=== PATIENT | female | born 1990 ===

== ENCOUNTER 2017-03-31 10:39 | Observation (INO) | payer MEDICAID ==
[2017-03-31 10:39] VITALS: BMI 28.3
[2017-03-31 10:46] VITALS: TEMP 98.2; O2SAT 100
--- NOTE | 2017-03-31 11:52 | ED PDOC ---
Arrival/HPI - General Chief Complaint: Abdominal Pain Time Seen by Provider: 03/31/17 11:50 Historian: Patient - History of Present Illness Narrative History of Present Illness (Text): 03/31/17 11:50 27 year old female who denies past medical history presents to the emergency department with vaginal bleeding since yesterday. She states she saw her PMD for bloodwork and when he pressed on her abdomen she began to bleed. She states she was told she needed an ultrasound. Patient adds that 7 months ago she "bled twice in one month" which she attributed to her period. Currently patient states she is not on control. Denies nausea, vomiting, diarrhea, constipation, or decreased appetite. Denies dysuria or vaginal discharge. Time/Duration: 24 hours Symptom Onset: Sudden Symptom Course: Unchanged Modifying Factors (Text): None Associated Symptoms (Text): None Past Medical History - Provider Review Nursing Documentation Reviewed: Yes - Tetanus Immunization Tetanus Immunization: Unknown - Psychiatric Hx Substance Use: No - Surgical History Hx Dilation and Curettage: Yes (October 2016) Family/Social History - Physician Review Nursing Documentation Reviewed: Yes Family/Social History: Unknown Family HX Smoking Status: Never Smoked Hx Alcohol Use: No Hx Substance Use: No Allergies/Home Meds Allergies/Adverse Reactions: Allergies No Known Allergies Allergy (Verified 03/31/17 10:42) Review of Systems - Physician Review All systems were reviewed & negative as marked: Yes - Review of Systems Gastrointestinal: absent: Constipation, Diarrhea, Nausea, Vomiting Genitourinary Female: Vaginal Bleeding. absent: Dysuria, Vaginal Discharge Skin: absent: Rash Physical Exam - Physical Exam Narrative Physical Exam (Text): Constitutional: No acute distress. Head: Normocephalic. Atraumatic. Eyes: PERRL. ENT: Moist mucous membranes. Neck: Supple. Cardiovascular: Regular rate. Chest: No tenderness. Respiratory: Clear to auscultation bilaterally. GI: Soft. Lower abdominal tenderness, worst on L & R suprapubic regions. Nondistended. Back: No CVA tenderness. Musculoskeletal: No tenderness or swelling of extremities. Skin: No rash. Neurologic: Alert, no focal deficit. Vital Signs Reviewed: Yes Vital Signs Temp Pulse Resp BP Pulse Ox 03/31/17 16:26 68 18 115/69 100 03/31/17 15:00 71 18 113/65 100 03/31/17 13:58 75 18 116/71 100 03/31/17 12:04 79 18 114/69 100 03/31/17 10:43 98.2 F 84 16 112/73 100 Temperature: Afebrile Blood Pressure: Normal Pulse: Regular Respiratory Rate: Normal Appearance: Positive for: Well-Appearing, Non-Toxic, Comfortable Pain Distress: None Mental Status: Positive for: Alert and Oriented X 3 Medical Decision Making ED Course and Treatment: Impression: 27 year old female who denies past medical history presents to the emergency department with vaginal bleeding since yesterday. Differential Diagnosis included but are not limited to: Pelvic pain r/o cyst vs ovarian torsion Plan: -- US transvaginal -- Labs -- Reassess and disposition Prior Visits: Notes and results from previous visits were reviewed. Patient last seen in the ED on 10/26/16 for abdominal pain and discharged home. Progress Notes: - RAD Interpretation Narrative RAD Interpretations (Text): Ultrasound Pelvic Voice Writing Reporter: Huy Quintana MD IMPRESSION: Unremarkable pelvic ultrasound Parimutuel Ticket Checker: Radiologist - Medication Orders Current Medication Orders: Discontinued Medications Ketorolac Tromethamine (Toradol) 30 mg IVP STAT STA Stop: 03/31/17 11:57 Last Admin: 03/31/17 12:13 Dose: 30 mg Morphine Sulfate (Morphine) 2 mg IVP STAT STA Stop: 03/31/17 14:54 Last Admin: 03/31/17 15:13 Dose: 2 mg ED OBSERVATION Discharge: Yes Date of observation admission: 03/31/17 Time of observation admission: 11:50 - Observation admission statement Patient is being placed in observation because:: pelvic pain - Goals of Observation Goals of observation are:: monitor patient's response to treatment in the ER. - Progress Note Progress Note: 03/31/17 11:50 On initial exam, patient with mild pain. 03/31/17 13:50 Patient resting in no acute distress. 03/31/17 14:55 Patient continues to have pain, crying in stretcher. Patient has right lower quadrant tenderness. Will send for CT. 03/31/17 14:55 Patient resting with no new complaints. PROCEDURE: CT Abdomen and Pelvis with contrast Voice Writing Reporter : Tremayne Wrae Report Date : 03/31/2017 17:09:47 IMPRESSION: No evidence of appendicitis. No evidence of acute pathology in the abdomen and pelvis. 2 centimeter cyst at the left adnexa. Slightly heterogeneous prominent size uterus. Patient states she feels much better now. Instructed to f/u with OBGYN. Prescribed Percocet for breakthrough pain. Informed patient of risk of addiction. RESPITE CARE PROVIDER checked. - Scribe Statement The provider has reviewed the documentation as recorded by the Dyan White Provider Scribe Attestation: All medical record entries made by the Scribjosesito were at my direction and personally dictated by me. I have reviewed the chart and agree that the record accurately reflects my personal performance of the history, physical exam, medical decision making, and the department course for this patient. I have also personally directed, reviewed, and agree with the discharge instructions and disposition. Disposition/Present on Arrival - Present on Arrival Any Indicators Present on Arrival: No History of DVT/PE: No History of Uncontrolled Diabetes: No Urinary Catheter: No History of Decub. Ulcer: No History Surgical Site Infection Following: None - Disposition Have Diagnosis and Disposition been Completed?: Yes Diagnosis: Ovarian cyst Disposition: HOME/ ROUTINE Disposition Time: 17:26 Patient Plan: Discharge Patient Problems: Current Active Problems Problem Status Onset Ovarian cyst Acute Condition: STABLE
[2017-03-31 12:22] LABS: ADD MANUAL DIFF? NO
[2017-03-31 12:26] LABS: BASO # 0.04 K/mm3 (0.0-2.0); BASO % 0.5 % (0.0-3.0); EOS # 0.1 (0.0-0.7); EOS % 1.2 % (1.5-5.0); GRAN # 5.05 (1.4-6.5); GRAN % 64.6 % (50.0-68.0); HEMATOCRIT 35.5 % (36.0-48.0); LYMPH # 1.9 (1.2-3.4); LYMPH % 24.6 % (22.0-35.0); MEAN CELL VOLUME 80.1 fL (80.0-105.0); MEAN CORPUSCULAR HEMOGLOBIN 25.3 pg (25.0-35.0); MEAN CORPUSCULAR HGB CONC 31.5 g/dl (31.0-37.0); MEAN PLATELET VOLUME 11.9 fl (7.0-11.0); MONO # 0.7 (0.1-0.6); MONO % 9.1 % (1.0-6.0); PLATELET COUNT 257 10^3/uL (120.0-450.0); RED CELL DISTRIBUTION WIDTH 15.2 % (11.5-14.5); WHITE BLOOD COUNT 7.8 10^3/ul (4.5-11.0)
[2017-03-31 12:27] LABS: PH,URINE 5.5 (4.7-8.0); URINE APPEARANCE CLEAR (CLEAR); URINE BILIRUBIN NEGATIVE (NEGATIVE); URINE BLOOD LARGE (NEGATIVE); URINE COLOR YELLOW (YELLOW); URINE GLUCOSE (UA) NEGATIVE (NEGATIVE); URINE KETONE TRACE mg/dL (NEGATIVE); URINE LEUKOCYTE ESTERASE NEGATIVE Leu/uL (NEGATIVE); URINE PROTEIN NEGATIVE mg/dL (<30 mg/dL); URINE UROBILINOGEN 0.2 E.U./dL (<1 E.U./dL)
[2017-03-31 12:38] LABS: ALB/GLOB RATIO 1.4 (1.1-1.8); ALKALINE PHOSPHATASE 40 U/L (38-133); ALT/SGPT 26 U/L (7-56); AST/SGOT 19 U/L (15-39); BILIRUBIN,TOTAL 0.6 mg/dL (0.2-1.3); BLOOD UREA NITROGEN 11 mg/dL (7-21); CARBON DIOXIDE 26 mmol/L (21-33); CHLORIDE 104 mmol/L (98-107); GFR AFRICAN-AMERICAN > 60; GLUCOSE,RANDOM 76 mg/dL (70-110); POTASSIUM 4.1 mmol/L (3.6-5.0); SODIUM 139 mmol/L (132-148); TOTAL PROTEIN 7.5 g/dL (5.8-8.3)
[2017-03-31 12:39] LABS: URINE WBC 0 - 2 /hpf (0-6)
[2017-03-31 12:40] LABS: URINE BACTERIA SMALL (NEG)
--- NOTE | 2017-03-31 14:50 | US ---
PROCEDURE: HISTORY: pelvic pain, assess cyst vs torsion COMPARISON: TECHNIQUE: Transvaginal FINDINGS: The uterus measures 8.5 x 4.9 x 5.6 centimeters. The endometrium measures 3 millimeters. The right ovary is unremarkable. The left ovary measures 3.1 x 2.3 centimeters contains a 1.8 centimeter cyst. There is no free from the pelvis. IMPRESSION: Unremarkable pelvic ultrasound.
[2017-03-31] MEDS ORDERED: Morphine 2 mg/ml ISec IVP STA (14:53)
--- NOTE | 2017-03-31 17:11 | CT ---
PROCEDURE: CT Abdomen and Pelvis with contrast HISTORY: abdominal pain, RLQ tenderness COMPARISON: Comparison is made to previous ultrasound of the pelvis done on the same day. TECHNIQUE: Contrast dose: 100 mL Omnipaque 350. Axial and reformatted coronal and sagittal CT images of the abdomen and pelvis were obtained after IV contrast administration. Radiation dose: Total exam DLP = 339.22 mGy-cm. This CT exam was performed using one or more of the following dose reduction techniques: Automated exposure control, adjustment of the mA and/or kV according to patient size, and/or use of iterative reconstruction technique. FINDINGS: LOWER THORAX: Unremarkable. LIVER: Unremarkable. No gross lesion or ductal dilatation. GALLBLADDER AND BILE DUCTS: Unremarkable. PANCREAS: Unremarkable. No gross lesion or ductal dilatation. SPLEEN: Unremarkable. ADRENALS: Unremarkable. No mass. KIDNEYS AND URETERS: Unremarkable. No hydronephrosis. No solid mass. VASCULATURE: Unremarkable. No aortic aneurysm. BOWEL: Unremarkable. No obstruction. No gross mural thickening. APPENDIX: Normal appendix. PERITONEUM: Unremarkable. No free fluid. No free air. LYMPH NODES: Unremarkable. No enlarged lymph nodes. BLADDER: Unremarkable. REPRODUCTIVE: History is heterogeneous prominent in size. There is a 2 centimeter cyst at the left adnexa. BONES: No acute fracture. OTHER FINDINGS: None. IMPRESSION: No evidence of appendicitis. No evidence of acute pathology in the abdomen and pelvis. 2 centimeter cyst at the left adnexa. Slightly heterogeneous prominent size uterus.
[2017-03-31 17:34] VITALS: BP 117/70; PULSE 69; RESP 16
== END 2017-03-31 17:27 | disposition home or self-care (01) ==
LOC: ED 10:39 → MERGE 11:50 → EROBSV 11:50
PROVIDERS: ADMIT Student in an Organized Health Care Education/Training Program; ATTEND Student in an Organized Health Care Education/Training Program
DX: N83.202 Unspecified ovarian cyst, left side (principal)
CPT/HCPCS: 74177; 76830; 80053; 81001; 84703; 85025; 96374; 96375; 99285; G0378; J1885; J2270; Q9967

== ENCOUNTER 2017-10-13 20:23 | Emergency (ER) | payer MEDICAID ==
[2017-10-13 21:02] VITALS: BMI 22.4
== END 2017-10-13 21:46 | disposition left against medical advice (07) ==
LOC: ED 20:23
DX: Z02.89 Encounter for other administrative examinations (principal); R10.30 Lower abdominal pain, unspecified